=== PATIENT | female | born 1980 | race Caucasian/White ===

== ENCOUNTER 2016-12-08 06:11 | Day surgery (SDC) | payer OTHER ==
[2016-11-28 08:24] VITALS: BMI 26.2
--- NOTE | 2016-12-07 23:40 | CP.SDSHP ---
Same Day Surgery H & P - History Proposed Procedure: Endometrial Ablation Pre-Op Diagnosis: Menorrhagia - Allergies Allergies: Allergies No Known Allergies Allergy (Verified 04/01/16 11:26) - Physical Exam General Appearance: Well Mental Status: Alert & Oriented x3 Neuro: WNL Heart: WNL Lungs: WNL GI: WNL - {Optional Preform as Required} Abdomen: WNL Integument: WNL : WNL Ortho: WNL ENT: WNL - Impression Impression: 36yo Female with Menorrhagia Pt. Evaluated Today:Candidate for Anesthesia & Procedure: Yes - Date & Time Date: 12/08/16 Time: 07:15 Short Stay Discharge - Short Stay Discharge Admitting Diagnosis/Reason for Visit: UTERINE FIBROID / MENORRHAGIA Disposition: HOME/ ROUTINE Follow-up: F/U with Dr Galvin in 2 weeks Progress Note/Discharge Note with Instructions: Pt is s/p Novasure endometrial ablation, Clinically Stable. Pt to f/u with Dr Galvin in 2 weeks.
[2016-12-08] MEDS ORDERED: Midazolam 2 MG/2 ML VIAL ONE (07:21)
[2016-12-08] MEDS ORDERED: Propofol 10 mg/ml Inj (20 ML) ONE (07:22)
[2016-12-08] MEDS ORDERED: Succinylcholine Chloride 20 mg/ml Syr (5 ml) IV ONE (07:22)
[2016-12-08] MEDS: Lactated Ringer's 1,000 ML IV ONE ×2 (07:46→08:50)
[2016-12-08] MEDS ORDERED: Lactated Ringer's 1,000 ML IV ONE (07:46)
[2016-12-08] MEDS ORDERED: cefOXitin IV 1 gm in Dextrose 50 ML IVPB ONE (08:07)
--- NOTE | 2016-12-08 08:50 | PCM.SURG1 ---
Surgeon's Initial Post Op Note - Surgeon's Notes Surgeon: Dr Galvin Corporate Compliance Manager: None Type of Anesthesia: General Endo Anesthesia Administered By: Dr Yañez Pre-Operative Diagnosis: 36yo female with Menorrhagia Operative Findings: 7-8wks sized anteverted uterus sounded to a deapth of 7cm. Endometrial and endocervical tissue obtained before ablation. Confirmation of ablation confirmed with hysteroscopy. IV Fluids - 800mls. Urine output - 50mls. EBL- 30 mls Post-Operative Diagnosis: Same as preop diagnosis Operation Performed: D and C Hysteroscopy and Endometrial ablation via Novasure Procedure. Specimen/Specimens Removed: Endometrial and endocervical curretings Estimated Blood Loss: EBL {In ML}: 30 Blood Products Given: N/A Post-Op Condition: Good Date of Surgery/Procedure: 12/08/16 Time of Surgery/Procedure: 08:52
[2016-12-08 09:11] VITALS: O2SAT 100
[2016-12-08] MEDS: HYDROmorphone 0.5 mg/0.5 ml ISec IVP PRN ×2 (09:14→09:35)
[2016-12-08] MEDS ORDERED: Lactated Ringer's 500 ML IV ONE ×2 (09:44)
[2016-12-08 12:21] VITALS: BP 118/78; PULSE 81; RESP 20; TEMP 98
--- NOTE | 2016-12-09 08:18 | OP ---
PROCEDURE DATE: 12/08/2016 PREOPERATIVE DIAGNOSIS: A 36-year-old female with menorrhagia. POSTOPERATIVE DIAGNOSIS: A 36-year-old female with menorrhagia. PROCEDURE DONE: D and C hysteroscopy and endometrial ablation via NovaSure procedure. SURGEON: Dr. Galvin There was no customer relations assistant. TYPE OF ANESTHESIA: General endotracheal. ANESTHESIA ADMINISTERED BY: Dr. Yañez OPERATIVE FINDINGS: A 7-8 week size anteverted uterus, sounded to a depth of 7 cm. There were some hyperplastic endometrium on hysteroscopy. Endometrial and endocervical tissue were obtained for analysis and before the ablation procedure. Confirmation of ablation was done with hysteroscopy. INTRAVENOUS FLUID INTAKE: 800 mL. URINE OUTPUT: 50 mL. ESTIMATED BLOOD LOSS: 30 mL. COMPLICATIONS: None. DESCRIPTION OF PROCEDURE: After obtaining informed consent, the patient was sent to the OR with IV running. The patient was placed in a supine position on the OR table and after adequate general anesthesia, was placed in the dorsal lithotomy position. The patient was then prepped and draped in the usual sterile fashion. The urinary bladder was drained with a straight catheter, with output of about 50 mL of clear urine. Pelvic examination was performed with above uterine dimensions noted. The posterior wall of the vagina was depressed using a weighted speculum and the anterior wall was elevated with an L -shaped retractor to expose the cervix. The anterior lip of the cervix was held with a single tooth tenaculum and the uterus was sounded to a depth of 7 cm. The cervical canal was then dilated with Hegar's dilators to about 8 mm dilatation. Hysteroscopy was performed with the above findings noted. Endometrial and endocervical curettage were separately done and the tissues obtained were sent for histopathology. During the NovaSure procedure, the uterine cavity length was initially assessed using the calibrated jj provided in the kit with a cavity length of about 4.5 cm. The NovaSure procedure was then set up with the help of a sales representative door to door in the OR. The steps were followed as per shipping team leader's instructions. The whole procedure was done and it lasted for about 2 minutes. Once the procedure had been completed and the machine had automatically came to a stop, a repeat hysteroscopy was performed to confirm ablation. All the instruments including the NovaSure device and the single tooth tenaculum and the weighted speculum were taken out. Once all the instruments had been taken out, the patient was repositioned in the supine position and was sent to the recovery room awake and in stable condition. All counts of instruments, laparotomy pads, and gauze used were correct x 3. Ori Galvin MD cc: [id number] TT: 12/09/2016 08:17:55 en TAIWO
== END 2016-12-08 12:12 | disposition home or self-care (01) ==
LOC: C.SDS 06:11
PROVIDERS: ATTEND Obstetrics & Gynecology
DX: N92.0 Excessive and frequent menstruation with regular cycle (principal); N85.00 Endometrial hyperplasia, unspecified
CPT/HCPCS: 58120; 58563; 88305; J1100; J1170; J2001; J2250; J2405; J2704; J3010; J7120

== ENCOUNTER 2017-04-28 14:40 | Emergency (ER) | payer OTHER ==
[2017-04-28 14:40] VITALS: BMI 26.2
[2017-04-28 14:48] VITALS: TEMP 97.9; O2SAT 99
[2017-04-28] MEDS ORDERED: Sodium Chloride 0.9% 1,000 ML IV ONE (15:10)
[2017-04-28 15:18] LABS: RBC URINE 10 /hpf (0-3); URINE BILIRUBIN NEGATIVE (NEGATIVE); URINE BLOOD 3+ (NEGATIVE); URINE COLOR Yellow (YELLOW); URINE GLUCOSE (UA) NORMAL (Normal); URINE KETONE NEGATIVE (NEGATIVE); URINE LEUKOCYTE ESTERASE NEG Leu/uL (Negative); URINE PROTEIN NEGATIVE (NEGATIVE); URINE UROBILINOGEN NORMAL mg/dL (0.2-1.0); WBC URINE 1 /hpf (0-5)
[2017-04-28] MEDS ORDERED: Sodium Chloride 0.9% 1,000 ML ONE (15:22)
--- NOTE | 2017-04-28 15:22 | C.PDOC ---
History Of Present Illness 36 yr old female presents to the ER with complaints of crampy epigastric pain for the past 3 days. Patient reports of early satiety. Denies history of GERD, fever, chills, nausea, vomiting, diarrhea, back pain, weakness or numbness. Time Seen by Provider: 04/28/17 15:05 Chief Complaint (Nursing): Abdominal Pain History Per: Patient History/Exam Limitations: no limitations Onset/Duration Of Symptoms: Days (3) Current Symptoms Are (Timing): Still Present Past Medical History Reviewed: Historical Data, Nursing Documentation, Vital Signs Vital Signs: Last Vital Signs Temp 97.9 F 04/28/17 14:47 Pulse 69 04/28/17 16:15 Resp 19 04/28/17 16:15 BP 122/74 04/28/17 16:15 Pulse Ox 99 04/28/17 16:15 - Medical History PMH: Anemia, Colonic Polyps, Migraine Family History: States: No Known Family Hx - Social History Hx Alcohol Use: No Hx Substance Use: No - Immunization History Hx Tetanus Toxoid Vaccination: No Hx Influenza Vaccination: No Hx Pneumococcal Vaccination: No Review Of Systems Except As Marked, All Systems Reviewed And Found Negative. Constitutional: Negative for: Fever, Chills Gastrointestinal: Positive for: Abdominal Pain (colicky discomfort). Negative for: Nausea, Vomiting, Diarrhea Musculoskeletal: Negative for: Back Pain Neurological: Negative for: Weakness, Numbness Physical Exam - Physical Exam Appears: Non-toxic, No Acute Distress Skin: Warm, Dry, No Rash Head: Atraumatic, Normacephalic Oral Mucosa: Moist Chest: Symmetrical, No Tenderness Cardiovascular: Rhythm Regular, No Murmur Respiratory: Normal Breath Sounds, No Rales, No Rhonchi, No Stridor, No Wheezing Gastrointestinal/Abdominal: Soft, Tenderness (Mild tenderness to epigastric), No Guarding, No Rebound, Other ((+) Dull percussion throughout) Extremity: Normal ROM, No Swelling ED Course And Treatment - Laboratory Results Result Diagrams: 04/28/17 15:21 04/28/17 15:21 Lab Interpretation: Normal (ua neg.) Urine POC: Negative O2 Sat by Pulse Oximetry: 99 (RA) Pulse Ox Interpretation: Normal - Radiology CXR: Interpreted by Me, Viewed By Me CXR Interpretation: Yes: No Acute Disease - Other Rad X-Ray - Obstructive Series X-Ray: Interpreted by Me (+FOS), Viewed By Me, Read By Radiologist Interpretation: IMPRESSION: Unremarkable radiographs of chest and abdomen. No evidence of mechanical bowel obstruction. No interval acute cardiopulmonary changes greater prior chest radiograph 11/07/2016. Reevaluation Time: 16:13 Reassessment Condition: Improved Medical Decision Making Medical Decision Making: PLAN: * X-Ray - Obstructive Series * CBC * CMP * HCG * Urinalysis * Protonix IVP * Toradol IVP * Sodium Chloride IV gastrotis vs PUD, vs constipation, empircally improved w protonix, toradol IVF's Disposition Doctor Will See Patient In The: Office Counseled Patient/Family Regarding: Studies Performed, Diagnosis - Disposition Referrals: [facility] [Outside] [facility] Disposition: HOME/ ROUTINE Disposition Time: 16:14 Condition: GOOD Additional Instructions: Estrenemiento: Prueba un purgante- [place] juanita botella de Citrato de Magnesio- y re-evalua marcial molestias despues de usar el donita 2-3 veces Sigue cambios de dieta: mas frutas y verduras crudas, [place] mas agua, camina mas Gastritis: el acido en el estomago elevado Sigue Protonix 20 mg (baja el acido del estomago) cada manana Evida las comidas que provocan el GERD GERD: [place] maalox 30 cc 4-5 veces al sheila vanessa necessario para las sintoimas si recurren. Sigue en [facility]) en 1-2 meces vanessa necessario Prescriptions: Pantoprazole Sodium [Protonix] 20 mg PO DAILY #30 ect Instructions: Peptic Ulcer (ED), Gastritis (ED), Constipation (ED), Gastroesophageal Reflux Disease (ED) Forms: [employer] (Cuban) Print Language: TAJIK - Clinical Impression Clinical Impression: Colicky periumbilical abdominal pain - Scribe Statement The provider has reviewed the documentation as recorded by the Scribe Jasmine Jaimes Provider Attestation: All medical record entries made by the Scribe were at my direction and personally dictated by me. I have reviewed the chart and agree that the record accurately reflects my personal performance of the history, physical exam, medical decision making, and the department course for this patient. I have also personally directed, reviewed, and agree with the discharge instructions and disposition.
[2017-04-28 15:25] LABS: BASO # 0.1 K/uL (0.0-0.2); EOS # 0.2 K/uL (0.0-0.7); HEMATOCRIT 38.5 % (34.0-47.0); LYMPH # 1.3 K/uL (1.0-4.3); MEAN CORPUSCULAR HEMOGLOBIN 30.1 pg (27.0-31.0); MEAN CORPUSCULAR HGB CONC 34.1 g/dL (33.0-37.0); MEAN PLATELET VOLUME 8.5 fL (7.2-11.7); MONO # 0.6 K/uL (0.0-0.8); MONO % 8.6 % (0.0-10.0); RED CELL DISTRIBUTION WIDTH 16.3 % (11.5-14.5); WHITE BLOOD COUNT 6.7 K/uL (4.8-10.8)
[2017-04-28 15:27] LABS: MEAN CELL VOLUME 88.3 fL (81.0-99.0)
[2017-04-28 15:35] LABS: CHLORIDE 103 mmol/L (98-107); POTASSIUM 3.8 mmol/L (3.6-5.2); SODIUM 139 mmol/L (132-148)
[2017-04-28 15:37] LABS: BILIRUBIN,TOTAL 0.5 mg/dL (0.2-1.3); CARBON DIOXIDE 23 mmol/L (22-30); GFR AFRICAN-AMERICAN > 60
[2017-04-28 15:38] LABS: ALB/GLOB RATIO 1.6 (1.0-2.1); ALKALINE PHOSPHATASE 48 U/L (38-126); ALT/SGPT 29 U/L (9-52); AST/SGOT 22 U/L (14-36); BLOOD UREA NITROGEN 14 mg/dL (7-17); GLUCOSE,RANDOM 94 mg/dL (65-105); TOTAL PROTEIN 7.1 g/dL (6.3-8.3)
[2017-04-28 16:20] VITALS: BP 122/74; PULSE 69; RESP 19
--- NOTE | 2017-04-28 16:20 | RAD ---
PROCEDURE: Radiographs of the chest and abdomen (obstructive series) HISTORY: epigastric colic COMPARISON: No prior. TECHNIQUE: AP radiograph of the chest, with upright and supine radiographs of the abdomen. FINDINGS: CHEST: Lungs: Clear. Cardiovascular: Normal size heart. No pulmonary vascular congestion. Pleura: No pleural fluid. No pneumothorax. Other findings: None. ABDOMEN AND PELVIS: Bowel: Unremarkable bowel gas pattern. No evidence of mechanical obstruction. Free air: None. Bones: Unremarkable. Other findings: None. IMPRESSION: Unremarkable radiographs of chest and abdomen. No evidence of mechanical bowel obstruction. No interval acute cardiopulmonary changes greater prior chest radiograph 11/07/2016.
== END 2017-04-28 16:29 | disposition home or self-care (01) ==
LOC: C.ER 14:40
DX: R10.33 Periumbilical pain (principal)
CPT/HCPCS: 74022; 80053; 81001; 83690; 84703; 85025; 96361; 96374; 96375; 99285; C9113; J1885; J7040